=== PATIENT | female | born 1965 | race Two or more races ===

== ENCOUNTER 2016-11-23 03:43 | Emergency (ER) | payer OTHER ==
[~2016-11-23] VITALS: Ht 165.1 cm; Wt 85.9 kg
[~2016-11-23 03:43] MED LIST: CELEXA20 MG PO; CLARITIN10 M3 PO; DESYREL100 MG PO; FLONASE16 G1 BOTH NARES; LAMOTRIGINE100 MG PO; PREDNISONE10 MG PO; PROVENTIL,2.5 MG/3 M IH; VENTOLIN HFA18 GM IH
[2016-11-23 04:06] LABS: HEMATOCRIT 39.5 % (36.0-46.0); MCH 28.5 PG (29.0-34.0); MCHC 33.2 G/DL (30.0-36.0); MCV 86.1 FL (83-99); PLATELET COUNT 323 K/uL (156-360); RBC DIS.WIDTH-CV 14.6 % (11.8-14.6); RBC DIS.WIDTH-SD 45.9 % (39-53); RED BLOOD COUNT 4.59 M/uL (3.80-5.20); WHITE BLOOD COUNT 7.1 K/uL (4.1-10.2)
[2016-11-23 04:19] LABS: CHLORIDE 110 mEq/L (99-109); POTASSIUM 3.4 mEq/L (3.7-5.4); SODIUM 145 mEq/L (136-147)
[2016-11-23 04:21] LABS: GLUCOSE 134 mg/dL (70-99)
[2016-11-23 04:22] LABS: ANION GAP 15 MEQ/L (2-14)
[2016-11-23 04:23] LABS: TOTAL BILIRUBIN 0.2 mg/dL (0.0-1.0)
[2016-11-23 04:24] LABS: ALKALINE PHOSPHATASE 71 IU/L (3-129); SERUM ETHYL ALCOHOL 178 mg/dL
[2016-11-23 04:25] LABS: GFR ESTIMATE (CALCULATED) 56 mL/min/
[2016-11-23 04:26] LABS: UREA NITROGEN (BUN) 12 mg/dL (9-23)
[2016-11-23 06:27] LABS: ADD MIUA? YES; BILIRUBIN NEGATIVE; BLOOD MODERATE; COLOR YELLOW ((YELLOW)); GLUCOSE (STRIP) NEGATIVE; KETONES 5; LEUKOCYTES NEGATIVE; NITRITE NEGATIVE; PROTEIN (STRIP) NEGATIVE; SPECIFIC GRAVITY 1.019 (1.000-1.030); UROBILINOGEN 0.2 MG/DL (0.2-1.0)
[2016-11-23 06:30] LABS: BACTERIA NONE SEEN /HPF; EPITHELIAL CELLS RARE /HPF; MUCUS 1+ /LPF; RED BLOOD CELLS 0-5 /HPF (0-5); WHITE BLOOD CELLS 0-5 /HPF (0-5)
[2016-11-23 06:35] LABS: ADD MEDTOX COMMENT Y; AMPHETAMINE NEGATIVE (500 ng/mL); BARBITURATES NEGATIVE (200 ng/mL); BENZODIAZEPINES NEGATIVE (150 ng/mL); COCAINE PRESUMPTIVE POSITIVE (150 ng/mL); INTERNAL CONTROLS VALID? YES; METHADONE NEGATIVE (200 ng/mL); METHAMPHETAMINE NEGATIVE (500 ng/mL); OPIATES (MORPHINE) NEGATIVE (100 ng/mL); OXYCODONE NEGATIVE (100 ng/mL); PHENCYCLIDINE NEGATIVE (25 ng/mL); PROPOXYPHENE NEGATIVE (300 ng/mL); THC CANNABINOIDS NEGATIVE (50 ng/mL); TRICYCLIC ANTIDEPRESSANTS NEGATIVE (300 ng/mL)
[2016-11-23 08:20] VITALS: BP 120/62
== END 2016-11-23 08:34 | disposition home or self-care (01) ==
LOC: EME 03:43
PROVIDERS: Emergency Medicine
DX: F41.9 Anxiety disorder, unspecified (principal); F32.9 Major depressive disorder, single episode, unspecified; F10.229 Alcohol dependence with intoxication, unspecified; S60.812A Abrasion of left wrist, initial encounter; X78.0XXA Intentional self-harm by sharp glass, initial encounter; Z23 Encounter for immunization; Y90.6 Blood alcohol level of 120-199 mg/100 ml; J45.909 Unspecified asthma, uncomplicated; F17.200 Nicotine dependence, unspecified, uncomplicated
CPT/HCPCS: 80053; 81003; 84999; 85027; 90837; 99281; 99285; G0480

== ENCOUNTER 2017-09-16 20:42 | Emergency (ER) | payer OTHER ==
[~2017-09-16] VITALS: Ht 165.1 cm; Wt 80.1 kg
[2017-09-16] MEDS ORDERED: VENTOLIN HFA18 GM IH (23:33)
[2017-09-16] MEDS ORDERED: PREDNISONE20 MG PO (23:33)
[2017-09-17 00:11] VITALS: BP 133/87
== END 2017-09-17 00:12 | disposition home or self-care (01) ==
LOC: EME 20:42
DX: J45.901 Unspecified asthma with (acute) exacerbation (principal); L24.4 Irritant contact dermatitis due to drugs in contact with skin; T48.5X5A Adverse effect of other anti-common-cold drugs, initial encounter; F17.200 Nicotine dependence, unspecified, uncomplicated
CPT/HCPCS: 94640; 99281; 99283; J2930